=== PATIENT | female | born 1985 | race Caucasian/White ===

== ENCOUNTER 2019-01-20 09:40 | Outpatient (REF) | payer BC, SELFPAY ==
[2019-01-20 21:31] LABS: Abs Immature Grans 0.06 k/cumm (0.0-0.09); Absolute Basophil Count 0.04 k/cumm (0.0-0.2); Absolute Eosinophil Count 0.37 k/cumm (0.0-0.7); Absolute Lymphocyte Count 2.51 k/cumm (1.2-3.4); Absolute Neutrophil Count 7.26 k/cumm (1.2-6.7); Basophils % 0.4; Eosinophils % 3.4; HCT 44.9 % (36.0-46.0); HGB 14.4 g/dL (12.0-15.5); Immature Grans % 0.5; Lymphocytes % 22.9; Mean Corp. HGB Concentration 32.1 g/dL (32.0-36.0); Mean Corpuscular Hemoglobin 24.7 pg (27.0-33.0); Mean Corpuscular Volume 77.1 fL (80-95); Mean Platelet Volume 9.8 fL (8.0-11.0); Monocytes % 6.4; Neutrophils % 66.4; Platelet Count 445 x1000/uL (130-400); RBC 5.82 m/cumm (4.00-5.20); White Blood Cell Count 10.94 k/cumm (4.4-10.8)
[2019-01-20 21:54] LABS: Calculated LDL 125 mg/dL; Cholesterol 198 mg/dL (<200); HDL Cholesterol 50 mg/dL (40-60); TSH (W/Ref FT4) 4.82 uIU/mL (0.36-3.74); Triglyceride 119 mg/dL (<150)
[2019-01-20 22:35] LABS: FREE T4 0.86 ng/dL (0.76-1.46)
[2019-01-21 14:21] LABS: Iron 48 ug/dL (50-170); Total Iron Binding Capacity 405 ug/dL (250-450); Transferrin Sat 12 % (15-50)
[2019-01-21 14:34] LABS: Ferritin 26 ng/mL (8-252)
== END 2019-01-20 10:00 ==
LOC: NCHCN 09:40
PROVIDERS: Visit Provider Family Medicine
DX: R53.83 Other fatigue (principal); Z13.220 Encounter for screening for lipoid disorders; Z86.39 Personal history of other endocrine, nutritional and metabolic disease; L98.9 Disorder of the skin and subcutaneous tissue, unspecified
CPT/HCPCS: 80061; 82728; 83540; 83550; 84439; 84443; 85025

== ENCOUNTER 2019-04-02 16:45 | Outpatient (REF) | payer BC, SELFPAY ==
[2019-04-02 21:46] LABS: Abs Immature Grans 0.04 k/cumm (0.0-0.09); Absolute Basophil Count 0.03 k/cumm (0.0-0.2); Absolute Eosinophil Count 0.24 k/cumm (0.0-0.7); Absolute Lymphocyte Count 3.05 k/cumm (1.2-3.4); Absolute Monocyte Count 0.61 k/cumm (0.11-0.7); Absolute Neutrophil Count 6.73 k/cumm (1.2-6.7); Basophils % 0.3; Eosinophils % 2.2; HCT 43.6 % (36.0-46.0); HGB 14.5 g/dL (12.0-15.5); Immature Grans % 0.4 %; Lymphocytes % 28.5; Mean Corp. HGB Concentration 33.3 g/dL (32.0-36.0); Mean Corpuscular Hemoglobin 26.5 pg (27.0-33.0); Mean Corpuscular Volume 79.6 fL (80-95); Mean Platelet Volume 9.8 fL (8.0-11.0); Monocytes % 5.7; Neutrophils % 62.9; Platelet Count 411 x1000/uL (130-400); RBC 5.48 m/cumm (4.00-5.20); RBC Distribution Width 14.9 % (11.7-14.6)
[2019-04-02 22:56] LABS: ALT 20 U/L (14-59); AST 16 U/L (15-37); Albumin 4.1 g/dL (3.4-5.0); Alkaline Phosphatase 94 U/L (46-116); Anion Gap 10.8 mmol/L (3-11); BUN 13 mg/dL (7-18); Bilirubin, Total 0.4 mg/dL (0.2-1.0); CO2 26.2 mmol/L (21.0-32.0); CREATININE 0.87 mg/dL (0.55-1.02); Calcium 8.7 mg/dL (8.5-10.1); Chloride 102 mmol/L (98-107); Glucose 92 mg/dL (74-106); Sodium 139 mmol/L (136-145); TSH (W/Ref FT4) 5.55 uIU/mL (0.36-3.74); Total Protein 7.5 g/dL (6.4-8.2)
[2019-04-02 23:13] LABS: FREE T4 1.06 ng/dL (0.76-1.46)
== END 2019-04-02 17:05 ==
LOC: NCHCN 16:45
PROVIDERS: Visit Provider Family Medicine
DX: R53.83 Other fatigue (principal); R94.6 Abnormal results of thyroid function studies; E66.9 Obesity, unspecified; Z86.39 Personal history of other endocrine, nutritional and metabolic disease
CPT/HCPCS: 80053; 83036; 84439; 84443; 85025

== ENCOUNTER 2020-06-13 21:01 | Outpatient (REF) | payer BC, SELFPAY ==
[2020-06-13 21:10] LABS: HCT 46.7 % (36.0-46.0); HGB 15.4 g/dL (11.2-15.7); MCH 27.4 pg (27.0-33.0); MCV 83.1 fL (80-95); MPV 9.8 fL (8.0-11.0); Platelet Count 357 10^3/uL (130-400); RBC 5.62 10^6/uL (3.93-5.22); RDW 12.9 % (11.7-14.6); RDW-SD 38.6 fL; WBC 10.47 10^3/uL (4.4-10.8)
[2020-06-13 21:29] LABS: Hemoglobin A1C 5.8 % (<5.7)
[2020-06-13 21:54] LABS: ALT 27 U/L (14-59); AST 17 U/L (15-37); Alkaline Phosphatase 90 U/L (46-116); Anion Gap 8.9 mmol/L (3-11); BUN 15 mg/dL (7-18); Bilirubin, Total 0.3 mg/dL (0.2-1.0); CO2 26.1 mmol/L (21.0-32.0); CREATININE 0.8 mg/dL (0.55-1.02); Calcium 9.1 mg/dL (8.5-10.1); Chloride 104 mmol/L (98-107); Glucose 72 mg/dL (74-106); Potassium 4.4 mmol/L (3.5-5.1); Sodium 139 mmol/L (136-145); TSH (W/Ref FT4) 4.28 uIU/mL (0.36-3.74); Total Protein 7.5 g/dL (6.4-8.2)
[2020-06-13 22:47] LABS: FREE T4 0.97 ng/dL (0.76-1.46)
== END 2020-06-13 21:02 | disposition home or self-care (01) ==
LOC: NCHCN 21:01
PROVIDERS: PCP Family Medicine; Visit Provider Family Medicine
DX: R94.6 Abnormal results of thyroid function studies (principal); E66.9 Obesity, unspecified; G44.89 Other headache syndrome; R73.09 Other abnormal glucose
CPT/HCPCS: 80053; 85027; 83036; 84439; 84443; 85025

== ENCOUNTER 2020-08-31 13:17 | Outpatient (REF) | payer BC, SELFPAY ==
[2020-08-31 14:26] LABS: TSH 3.37 uIU/mL (0.36-3.74)
[2020-09-02 13:43] LABS: Vitamin D 25 Total 19.9 ng/mL (30-100)
== END 2020-08-31 13:18 | disposition home or self-care (01) ==
LOC: NCHCN 13:17
PROVIDERS: PCP Family Medicine; Visit Provider Family Medicine
DX: E03.9 Hypothyroidism, unspecified (principal); M79.10 Myalgia, unspecified site
CPT/HCPCS: 82306; 84443

== ENCOUNTER 2021-07-18 20:15 | Outpatient (REF) | payer BC, SELFPAY ==
[2021-07-18 22:24] LABS: ALT 37 U/L (14-59); AST 21 U/L (15-37); Alkaline Phosphatase 83 U/L (46-116); Anion Gap 5.5 mmol/L (3-11); BUN 18 mg/dL (7-18); Bilirubin, Total 0.3 mg/dL (0.2-1.0); CO2 29.5 mmol/L (21.0-32.0); Calcium 9.4 mg/dL (8.5-10.1); Calculated LDL 102 mg/dL (<100); Chloride 103 mmol/L (98-107); Cholesterol 176 mg/dL (<200); Glucose 93 mg/dL (74-106); HDL Cholesterol 48 mg/dL (40-60); Potassium 4.4 mmol/L (3.5-5.1); Sodium 138 mmol/L (136-145); Total Protein 7.6 g/dL (6.4-8.2); Triglyceride 133 mg/dL (<150)
[2021-07-18 22:50] LABS: FREE T4 0.82 ng/dL (0.76-1.46)
== END 2021-07-18 20:16 | disposition home or self-care (01) ==
LOC: NCHCN 20:15
PROVIDERS: PCP Family Medicine; Visit Provider Registered Nurse
DX: R73.03 Prediabetes (principal); I10 Essential (primary) hypertension; E03.9 Hypothyroidism, unspecified; E66.9 Obesity, unspecified
CPT/HCPCS: 80053; 80061; 83036; 84439; 84443

== ENCOUNTER 2022-12-06 19:48 | Outpatient (REF) | payer BC, SELFPAY ==
[2022-12-06 21:24] LABS: Hemoglobin A1C 5.7 % (<5.7)
[2022-12-06 21:29] LABS: ALT 45 U/L (14-59); AST 33 U/L (15-37); Albumin 4.1 g/dL (3.4-5.0); Alkaline Phosphatase 74 U/L (46-116); Anion Gap 10.8 mmol/L (3-11); BUN 13 mg/dL (7-18); Bilirubin, Total 0.5 mg/dL (0.2-1.0); CO2 27.2 mmol/L (21.0-32.0); CREATININE 0.9 mg/dL (0.55-1.02); Calcium 9.8 mg/dL (8.5-10.1); Calculated LDL 105 mg/dL (<100); Chloride 102 mmol/L (98-107); Cholesterol 187 mg/dL (<200); Glucose 91 mg/dL (74-106); HDL Cholesterol 50 mg/dL (40-60); Potassium 4.3 mmol/L (3.5-5.1); Sodium 140 mmol/L (136-145); TSH 2.18 uIU/mL (0.36-3.74); Total Protein 8.4 g/dL (6.4-8.2); Triglyceride 160 mg/dL (<150)
== END 2022-12-06 19:49 | disposition home or self-care (01) ==
LOC: NCHCN 19:48
PROVIDERS: PCP Family Medicine; Visit Provider Family Medicine
DX: R73.03 Prediabetes (principal); I10 Essential (primary) hypertension; E66.9 Obesity, unspecified; Z00.00 Encounter for general adult medical examination without abnormal findings; E03.9 Hypothyroidism, unspecified
CPT/HCPCS: 80053; 80061; 83036; 84443

== ENCOUNTER 2024-07-01 11:11 | Outpatient (REF) | payer BC, SELFPAY ==
[2024-07-01 16:08] LABS: Abs Immature Grans 0.04 10^3/uL (0.0-0.06); Absolute Basophil Count 0.05 10^3/uL (0.0-0.2); Absolute Eosinophil Count 0.49 10^3/uL (0.0-0.7); Absolute Lymphocyte Count 2.56 10^3/uL (1.2-3.4); Absolute Neutrophil Count 4.94 10^3/uL (1.2-6.7); Basophils % 0.6 %; Eosinophils % 5.7 %; HCT 44.4 % (36.0-46.0); HGB 15.1 g/dL (11.2-15.7); Immature Grans % 0.5 %; Lymphocytes % 29.8 %; MCH 28.4 pg (27.0-33.0); MCV 84 fL (80-95); MPV 9.6 fL (8.0-11.0); Monocytes % 5.8 %; Neutrophils % 57.6 %; Platelet Count 298 10^3/uL (130-400); RBC 5.31 10^6/uL (3.93-5.22); RDW 13.2 % (11.7-14.6); WBC 8.58 10^3/uL (4.4-10.8)
[2024-07-01 16:43] LABS: ALT 52 U/L (14-59); AST 42 U/L (15-37); Albumin 4.3 g/dL (3.4-5.0); Alkaline Phosphatase 78 U/L (46-116); Anion Gap 8.2 mmol/L (3-11); BUN 14 mg/dL (7-18); Bilirubin, Total 0.7 mg/dL (0.2-1.0); CO2 27.8 mmol/L (21.0-32.0); CREATININE 0.9 mg/dL (0.55-1.02); Calcium 9.5 mg/dL (8.5-10.1); Chloride 103 mmol/L (98-107); Estimated GFR 82.88 (mL/min/1.73m2); Glucose 92 mg/dL (74-106); Lipase 35 U/L (<78); Potassium 3.9 mmol/L (3.5-5.1); Sodium 139 mmol/L (136-145); TSH 14.71 uIU/mL (0.36-3.74); Total Protein 8.1 g/dL (6.4-8.2)
[2024-07-01 16:50] LABS: Hemoglobin A1C 5.6 % (<5.7)
[2024-07-02 10:45] LABS: IgA 300 mg/dL (85-499); Interpretation (See Note); Tissue Transglutaminase IgA <4.0 CU (<20.0)
== END 2024-07-01 11:12 | disposition home or self-care (01) ==
LOC: NCHCN 11:11
PROVIDERS: PCP Family Medicine; Visit Provider Family Medicine
DX: R11.15 Cyclical vomiting syndrome unrelated to migraine (principal); E03.9 Hypothyroidism, unspecified; R73.03 Prediabetes
CPT/HCPCS: 80053; 82784; 83516; 83690; 83036; 84443; 85025

== ENCOUNTER 2024-12-31 10:37 | Outpatient (REF) | payer BC, SELFPAY ==
[2024-12-31 16:49] LABS: Microalb ug/mg Crea 3.0 ug/mg Cr
== END 2024-12-31 10:38 | disposition home or self-care (01) ==
LOC: NCHCN 10:37
PROVIDERS: PCP Family Medicine; Visit Provider Family Medicine
DX: I10 Essential (primary) hypertension (principal)
CPT/HCPCS: 82043; 82570